=== PATIENT | male | born 1990 | race Two or more races ===

== ENCOUNTER 2024-10-05 17:00 | Emergency (ER) | payer OTHER, MEDICAID ==
[~2024-10-05] VITALS: Ht 188 cm; Wt 79.4 kg
[2024-10-05 20:43] VITALS: BP 145/90; PULSE 90; RESP 21; TEMP 98.6; O2SAT 98
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
[2024-10-05] MEDS ORDERED: ACET500T58 PO (20:53)
[2024-10-05] MEDS: ACETAMINOPHEN 325 MG TAB PO ONE (21:06)
--- NOTE | 2024-10-05 21:13 | DVH ---
INDICATION: lumbar back pain COMPARISON: None TECHNIQUE: AP and lateral radiographs of the lumbar spine FINDINGS: There is normal alignment of the lumbar spine. The lumbar vertebral bodies, T11 and T12 are normal in appearance with no fracture. Evidence of mild disc space narrowing at L4-L5 and L5-S1. The remainder of the levels in the lumbar s pine appear unremarkable. Facet and SI joints appear unremarkable. IMPRESSION: No evidence of fracture in the lumbar spine. Mild disc space narrowing at L4-L5 and L5-S1.
--- NOTE | 2024-10-05 21:30 | DVH ---
CT HEAD WITHOUT CONTRAST INDICATION: head injury COMPARISON: None TECHNIQUE: CT of the head without intravenous contrast. RADIATION DOSE: CTDIvol: mGy, DLP: mGy*cm FINDINGS: There is no evidence of intracranial hemorrhage, infarct, extra-axial collection, mass effect, midli ne shift, herniation or hydrocephalus. The ventricles, sulci and cisterns are normal. The godoy-white differentiation is normal. Small mucus retention cyst in left maxillary sinus; otherwise unremarkable. Mastoid air cells and mi ddle ear cavities are clear. Soft tissues and osseous structures are unremarkable. IMPRESSION: No intracranial abnormality.
--- NOTE | 2024-10-05 21:33 | DVH ---
EXAM: CT CERVICAL WITHOUT CONTRAST HISTORY: neck pain COMPARISON: None CTDIvol mGy, DLP mGy*cm. TECHNIQUE: Multiple axial CT images of the spine were obtained using bone algorithm. Axial and coron al reformatting was done. Bone and soft tissue windows were reviewed. FINDINGS: No prevertebral soft tissue abnormality noted. There is curvature of the cervical spine convex to the left. No listhesis. The cervical vertebral bodies appear unremarkable with no evidence of fracture o r dislocation. Paraspinal soft tissues appear unremarkable. No disc-osteophyte, spinal canal or neural foraminal josé miguel nosis at any of the levels in the cervical spine. IMPRESSION: No evidence of cervical spine fracture or dislocation.
== END 2024-10-05 21:43 | disposition home or self-care (01) ==
LOC: ER 17:00 → EDBD 17:00 → ER 21:43
DX: S16.1XXA Strain of muscle, fascia and tendon at neck level, initial encounter (principal); S39.012A Strain of muscle, fascia and tendon of lower back, initial encounter; Z79.899 Other long term (current) drug therapy; V43.52XA Car driver injured in collision with other type car in traffic accident, initial encounter; Y93.89 Activity, other specified; Y92.89 Other specified places as the place of occurrence of the external cause; Y99.8 Other external cause status
CPT/HCPCS: 70450; 72100; 72125